=== PATIENT | male | born 1995 | race Two or more races ===

== ENCOUNTER 2025-02-24 21:57 | Emergency (ER) | payer OTHER ==
[~2025-02-24] VITALS: Ht 177.8 cm; Wt 122.5 kg
[2025-02-25 02:56] LABS: BASO % 0.7 % (0.1-1.2); EOS # 0.30 (0.04-0.54); EOS % 2.4 % (0.7-7.0); LYMPH # 3.44 (1.18-3.74); LYMPH % 28.0 % (19.3-53.1); MEAN PLATELET VOLUME 9.90 fl (9.4-12.4); MONO # 0.86 (0.24-0.82); MONO % 7.0 % (4.7-12.5); NEUT # 7.56 (1.56-6.13); NEUT % 61.7 % (34.0-71.1); RED CELL DISTRIBUTION WIDTH 13.5 % (11.6-14.4)
[2025-02-25 02:57] LABS: ERYTHROCYTE SEDIMENTATION RATE 2 mm/hr (0-15)
[2025-02-25] MEDS ORDERED: 0.9 % SODIUM CHLORIDE 1,000 ML IV STA (03:09)
[2025-02-25 03:14] LABS: ALT/SGPT 40.0 U/L (12-78); AST/SGOT 19.0 U/L (15-37); BILIRUBIN TOTAL 0.35 mg/dL (0.3-1.2); BUN CREA RATIO 16.0 (7.0-25.0); CREATININE SERUM 0.92 mg/dL (0.70-1.30); GFR 95.96; GLOBULINA 3.3 G/DL (2.4-3.5); GLUCOSE FASTING 117.0 mg/dL (65-100); OSMOLALITY SERUM 276.0 MOSM/KG (275-295)
[2025-02-25 03:32] LABS: URINE APPEARANCE Error; URINE BILIRRUBIN Negative (NEGATIVE); URINE BLOOD Negative; URINE COLOR Yellow; URINE GLUCOSE Negative (NEGATIVE); URINE KETONE Negative (NEGATIVE); URINE LEUKOCYTE Negative; URINE NITRATE Negative; URINE PROTEIN Negative (NEGATIVE); URINE UROBILINOGEN 0.2 E.U./dl
[2025-02-25 03:36] LABS: URINE BACTERIA 8.0 uL (0.0-1933)
[2025-02-25 03:37] LABS: URINE CAST 0.14 uL (0.0-1.40); URINE EPITHELIAL CELLS 0.3 uL (0.0-38.8); URINE RBC 0.4 uL (0.0-20.8); URINE WBC 1.2 uL (0.0-23.2)
[2025-02-25] MEDS ORDERED: CEFTRIAXONE SODIUM 2,000 MG VIAL IV STA (05:28)
[2025-02-25] MEDS ORDERED: KETOROLAC TROMETHAMINE 15 MG VIAL IV STA (05:33)
== END 2025-02-25 07:43 | disposition home or self-care (01) ==
LOC: ER 21:58
PROVIDERS: General Practice
DX: R10.32 Left lower quadrant pain (principal); K57.32 Diverticulitis of large intestine without perforation or abscess without bleeding